=== PATIENT | female | born 1995 | race Caucasian/White ===

== ENCOUNTER 2023-09-09 18:17 | Emergency (ER) | payer OTHER ==
[2023-09-09 18:49] LABS: BASOPHILS % (AUTO) 0.2 %; EOSINOPHILS # (AUTO) 0.1 10^3/uL (0.0-0.7); HCT - HEMATOCRIT 39.3 % (37.0-47.0); HGB - HEMOGLOBIN 12.9 g/dL (12.0-16.0); LYMPHOCYTES # (AUTO) 1.7 10^3/uL (1.5-3.5); LYMPHOCYTES % (AUTO) 34.3 %; MEAN CORPUSCULAR HEMOGLOBIN 28.9 pg (27.0-31.0); MEAN CORPUSCULAR HGB CONC 32.8 g/dL (32.0-36.0); MEAN CORPUSCULAR VOLUME 88.1 fL (81.0-99.0); MEAN PLATELET VOLUME 10.4 fL (7.9-10.8); MONOCYTES # (AUTO) 0.4 10^3/uL (0.0-1.0); MONOCYTES % (AUTO) 7.1 %; NEUTROPHILS # (AUTO) 2.8 10^3/uL (1.5-6.6); PLT - PLATELET COUNT 204 10^3/uL (130-450); RED BLOOD COUNT 4.46 10^6/uL (4.20-5.40); RED CELL DISTRIBUTION WIDTH 12.7 % (12.0-15.0)
[2023-09-09 19:05] LABS: ALBUMIN 4.4 g/dL (3.2-5.5); ALBUMIN/GLOBULIN RATIO 1.9 (1.0-2.2); BILIRUBIN,TOTAL 0.5 mg/dL (0.2-1.0); CALCIUM 9.6 mg/dL (8.5-10.3); CREATININE 0.9 mg/dL (0.6-1.3); POTASSIUM 3.9 mmol/L (3.5-4.5); TOTAL PROTEIN 6.7 g/dL (6.4-8.9)
[2023-09-09] MEDS ORDERED: SODIUM CHLORIDE 0.9% 1,000 ML IV STA (19:25)
[2023-09-09] MEDS ORDERED: MORPHINE 2 MG/ML CARPUJECT IVP STA (19:25)
[2023-09-09] MEDS ORDERED: ONDANSETRON 4 MG/2 ML VIAL IVP STA (19:25)
[2023-09-09 19:49] LABS: BILIRUBIN,URINE NEGATIVE (NEGATIVE); GLUCOSE, URINE (UA) NEGATIVE (NEGATIVE); KETONES,URINE (UA) TRACE mg/dL (NEGATIVE); LEUKOCYTE ESTERASE, URINE NEGATIVE (NEGATIVE); NITRITE,URINE NEGATIVE (NEGATIVE); OCCULT BLOOD,URINE NEGATIVE (NEGATIVE); PH,URINE 6.5 PH (5.0-7.5); PROTEIN,URINE NEGATIVE (NEGATIVE); UROBILINOGEN,URINE 1 (NORMAL) E.U./dL (NORMAL)
[2023-09-09 19:53] LABS: CLARITY,URINE CLEAR (CLEAR)
[2023-09-09 20:20] LABS: HCG UR QUAL NEGATIVE
[2023-09-09] MEDS ORDERED: iohexoL-300 100 ML VIAL IVP ONE (20:45)
--- NOTE | 2023-09-09 21:11 | CT Report ---
PROCEDURE: ABDOMEN/PELVIS W INDICATIONS: diffuse abd pain CONTRAST: 100mL Omni 300 TECHNIQUE: After the administration of IV contrast, 5 mm thick sections acquired from the diaphragms to the symp hysis. 5 mm thick coronal and sagittal reformats were acquired. For radiation dose reduction, the f ollowing was used: automated exposure control, adjustment of mA and/or kV according to patient size. COMPARISON: None FINDINGS: Image quality: Good Lower chest: Lung bases appear unremarkable. Heart size is normal. Solid organs: Hypervascular lesion at the liver dome is indeterminate on this single phase study, but most commonly a flash filling hemangioma. Gallbladder is unremarkable. No pathologic dilation of the biliary system or pancreatic duct. Splenom egaly measures about 16 cm in craniocaudal dimension. No adrenal nodules. No suspicious renal lesions or hydronephrosis. Vessels and lymph nodes: The main portal vein appears patent. No abdominal aortic aneurysm. No pathol ogic lymph nodes by size criteria. Bowel and peritoneum: Mild nonspecific wall thickening versus artifact of under distention of the dis linda stomach. There is no small bowel obstruction. Appendix appears nondilated. Small amount pelvic fr ee fluid is present. Body wall: Tiny fat-containing umbilical hernia. Pelvis: Suspected small subserosal fibroid near the fundus. An IUD is in place. Unremarkable appearan ce of the adnexal structures for age on limited CT evaluation. Bladder is unremarkable. Bones: No acute or suspicious finding. IMPRESSION: Splenomegaly measures 16 cm in craniocaudal dimension. Incidental hypervascular lesion at the liver dome, indeterminate on single phase CT. Assuming patient does not have a known malignancy history, this is most commonly hemangioma. Mild nonspecific wall thickening representing gastritis versus artifact of under distention in the di stal stomach. Pelvic organs could be better evaluated on ultrasound if there is concern. An IUD is seen. No acute findings otherwise. Reviewed by: Jovanny Bustillo MD on 09/09/2023 9:10 PM PST Approved by: Jovanny Bustillo MD on 09/09/2023 9:10 PM PST Station ID: [id number]
[2023-09-09] MEDS ORDERED: KETOROLAC 30 MG/ML VIAL IVP STA (21:16)
--- NOTE | 2023-09-09 21:35 | ED Physician Documentation ---
History of Present Illness - Stated complaint Stated Complaint: ABD PX - Chief complaint Chief Complaint: Abd Pain - History obtained from History obtained from: Patient - History of Present Illness Timing: Yesterday Pain level max: 7 Pain level now: 7 - Additonal information Additional information: 27-year-old female presents to the emergency department stating she has had nausea and diarrhea for the past 36 hours. Has diffuse abdominal pain, sometimes on the right, sometimes on the left, sometimes upper, sometimes lower. No fevers. No chills. Has an IUD in place. Denies any possibility of . No changes in sexual partners. No vaginal bleeding or discharge. No recent travel. No recent antibiotics. No blood in the stool. Has not had similar symptoms previously. Does not believe she has been around anyone that has been sick. Review of Systems Constitutional: denies: Fever, Chills GI: reports: Nausea (Nausea but no vomiting), Diarrhea (Patient states she was constipated yesterday, has had diarrhea x 2 today. Nonbloody). 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 - Present Medications Home Medications: Ambulatory Orders Medication Instructions Recorded Confirmed HYDROcod/ACETAM 5/325 [Haines 5/325] 1 - 2 ea PO Q6H PRN #14 tablet 09/09/23 Ondansetron Odt [Zofran] 4 mg TL Q6H PRN #10 tablet 09/09/23 - Allergies Allergies/Adverse Reactions: Allergies Allergy/AdvReac Type Severity Reaction Status Date / Time amoxicillin AdvReac Rash Verified 09/09/23 18:30 - Social History Does the pt smoke?: No Smoking Status: Never smoker PD ED PE NORMAL - Vitals Vital signs reviewed: Yes - General General: Alert and oriented X 3, No acute distress - HEENT HEENT: PERRL, Moist mucous membranes - Neck Neck: Supple, no meningeal sign - Cardiac Cardiac: RRR, Strong equal pulses - Respiratory Respiratory: No respiratory distress, Clear bilaterally - Abdomen Abdomen: Soft, Non distended, Other (Mild diffuse tenderness to palpation. No peritoneal signs.) - Female Female : Pt declined - Rectal Rectal: Pt declined - Back Back: No CVA TTP, No spinal TTP - Derm Derm: Warm and dry - Extremities Extremities: No edema, No calf tenderness / cord - Neuro Neuro: Alert and oriented X 3 - Psych Psych: Normal mood, Normal affect Results - Vitals Vitals: Vital Signs - 24 hr 09/09/23 09/09/23 09/09/23 18:27 19:47 21:41 Temperature 36.8 C 36.8 C 36.8 C Heart Rate 73 65 82 Respiratory 18 17 17 Rate Blood Pressure 120/73 114/80 100/53 L O2 Saturation 100 100 98 09/09/23 22:08 Temperature Heart Rate Respiratory 16 Rate Blood Pressure O2 Saturation Oxygen O2 Source Room air - Labs Labs: Laboratory Tests 09/09/23 09/09/23 09/09/23 18:46 18:46 19:35 WBC 5.0 RBC 4.46 Hgb 12.9 Hct 39.3 MCV 88.1 MCH 28.9 MCHC 32.8 RDW 12.7 Plt Count 204 MPV 10.4 Neut # (Auto) 2.8 Lymph # (Auto) 1.7 [place] # (Auto) 0.4 Eos # (Auto) 0.1 Baso # (Auto) 0.0 Absolute Nucleated RBC 0.00 Nucleated RBC % 0.0 Sodium 139 Potassium 3.9 Chloride 105 Carbon Dioxide 29 Anion Gap 5.0 L BUN 11 Creatinine 0.9 Estimated GFR (MDRD) 76 L Glucose 110 H Calcium 9.6 Total Bilirubin 0.5 AST 12 ALT 10 Alkaline Phosphatase 39 L Total Protein 6.7 Albumin 4.4 Globulin 2.3 Albumin/Globulin Ratio 1.9 Lipase 36 Urine Color YELLOW Urine Clarity CLEAR Urine pH 6.5 Ur Specific [place] 1.020 Urine Protein NEGATIVE Urine Glucose (UA) NEGATIVE Urine Ketones TRACE Urine Occult Blood NEGATIVE Urine Nitrite NEGATIVE Urine Bilirubin NEGATIVE Urine Urobilinogen 1 (NORMAL) Ur Leukocyte Esterase NEGATIVE Ur Microscopic Review NOT INDICATED Urine Culture Comments NOT INDICATED Urine HCG, Qual 09/09/23 19:35 WBC RBC Hgb Hct MCV MCH MCHC RDW Plt Count MPV Neut # (Auto) Lymph # (Auto) [place] # (Auto) Eos # (Auto) Baso # (Auto) Absolute Nucleated RBC Nucleated RBC % Sodium Potassium Chloride Carbon Dioxide Anion Gap BUN Creatinine Estimated GFR (MDRD) Glucose Calcium Total Bilirubin AST ALT Alkaline Phosphatase Total Protein Albumin Globulin Albumin/Globulin Ratio Lipase Urine Color Urine Clarity Urine pH Ur Specific [place] Urine Protein Urine Glucose (UA) Urine Ketones Urine Occult Blood Urine Nitrite Urine Bilirubin Urine Urobilinogen Ur Leukocyte Esterase Ur Microscopic Review Urine Culture Comments Urine HCG, Qual NEGATIVE - Rads (name of study) CT abdomen pelvis Relevant Findings:: Final report received, See rad report PD Medical Decision Making - ED course Complexity details: reviewed results, re-evaluated patient, considered differential, d/w patient ED course: Patient is a 27-year-old female who presents to the emergency department with abdominal pain since yesterday has had nausea and diarrhea. Possible viral illness? No acute findings on CT scan. Pain well-controlled. Tolerating p.o. without difficulty. Given IV morphine for pain and IV Zofran. Also given IV fluids. Will prescribe pain medication for home and have her follow-up with her PCP. No evidence of ovarian cyst, ovarian torsion. No evidence of PID. Patient is well-appearing, nontoxic. No diarrhea here. Patient counseled regarding signs and symptoms for which I believe and urgent re-evaluation would be necessary. Patient with good understanding of and agreement to plan and is comfortable going home at this time This document was made in part using voice recognition software. While efforts are made to proofread this document, sound alike and grammatical errors may occur. Departure - Departure Disposition: 01 Home, Self Care Clinical Impression: Abdominal pain Qualifiers: Abdominal location: generalized Qualified Code(s): R10.84 - Generalized abdominal pain Condition: Good Instructions: ED Abdominal Pain Female Non-Specific Abdominal Pain Follow-Up: your,doctor in 1week [Other] Prescriptions: HYDROcod/ACETAM 5/325 [Haines 5/325] 1 - 2 ea PO Q6H PRN #14 tablet PRN Reason: Pain Ondansetron Odt [Zofran] 4 mg TL Q6H PRN #10 tablet PRN Reason: Nausea / Vomiting Comments: Your prescriptions were sent to the [facility]. The cause of your symptoms is unclear today. Your laboratory testing does not show any significant abnormalities. Your urinalysis does not show any evidence of infection. Your CT scan does not show any acute abnormalities, you do have an enlarged spleen as well as a hypervascular lesion in your liver dome, likely a hemangioma. There is some mild wall thickening of your stomach, but this may just be because you have not eaten recently. Your IUD is in place. Please follow-up with your doctor for further care. Please return if you worsen. I am prescribing a short course of narcotic pain medication for you. These are potentially dangerous and addictive medications that should be used carefully. These medications may constipate you. Take an zeyf-fzv-ynbpqwd stool softener (docusate) twice daily with plenty of water while taking these medications. If you go 24 hours without a bowel movement, take [id number] miralax, per package instructions. Do not drink or drive while taking these medications. If you received narcotic or sedating medications while in the emergency department, do not drive for 24 hours. Store this medication in a safe, secure place and out of reach of children. It is a violation of federal law to give or sell this medication to another person or to use in a manner other than prescribed. The ED will not refill narcotic prescriptions, including prescriptions lost or stolen. To dispose of unwanted medications: 1. [facility] [address] in [place] has a medication drop box. They accept prescription medications (in pill form) Thursday through Thursday 9:00 a.m. to 5:00 p.m. 2. The [facility] [employer] accepts prescription medications (in pill form only) for disposal year round. Call for more information. 3. Contact the [facility] for the next [facility] sponsored prescription drug collection event. , [phone], or [phone]; Forms: PCP List Discharge Date/Time: 09/09/23 22:09
[2023-09-09 21:43] VITALS: BP 100/53; O2SAT 98
[2023-09-09] MEDS ORDERED: ONDANSETRON ODT 4 MG Prepack 2 TL PRN (21:49)
== END 2023-09-09 22:09 | disposition home or self-care (01) ==
LOC: ED 18:17
DX: R10.84 Generalized abdominal pain (principal)
CPT/HCPCS: 36415; 74177; 80053; 81003; 81025; 83690; 85025; 96374; 96375; 99283; 99284; Q9967; 81001; 87086

== ENCOUNTER 2024-06-14 18:34 | Emergency (ER) | payer OTHER ==
[2024-06-14 19:10] LABS: BASOPHILS % (AUTO) 0.5 %; EOSINOPHILS # (AUTO) 0.1 10^3/uL (0.0-0.7); EOSINOPHILS % (AUTO) 2.3 %; HCT - HEMATOCRIT 38.9 % (37.0-47.0); HGB - HEMOGLOBIN 13.1 g/dL (12.0-16.0); LYMPHOCYTES # (AUTO) 2.1 10^3/uL (1.5-3.5); LYMPHOCYTES % (AUTO) 47.4 %; MEAN CORPUSCULAR HEMOGLOBIN 29.3 pg (27.0-31.0); MEAN CORPUSCULAR HGB CONC 33.7 g/dL (32.0-36.0); MEAN PLATELET VOLUME 10.6 fL (7.9-10.8); MONOCYTES # (AUTO) 0.3 10^3/uL (0.0-1.0); MONOCYTES % (AUTO) 7.6 %; NEUTROPHILS # (AUTO) 1.8 10^3/uL (1.5-6.6); PLT - PLATELET COUNT 165 10^3/uL (130-450); RED BLOOD COUNT 4.47 10^6/uL (4.20-5.40); RED CELL DISTRIBUTION WIDTH 12.6 % (12.0-15.0); WHITE BLOOD COUNT 4.4 x10^3/uL (4.8-10.8)
[2024-06-14 19:11] LABS: BILIRUBIN,URINE NEGATIVE (NEGATIVE); GLUCOSE, URINE (UA) NEGATIVE (NEGATIVE); KETONES,URINE (UA) NEGATIVE (NEGATIVE); LEUKOCYTE ESTERASE, URINE NEGATIVE (NEGATIVE); NITRITE,URINE NEGATIVE (NEGATIVE); OCCULT BLOOD,URINE NEGATIVE (NEGATIVE); PROTEIN,URINE NEGATIVE (NEGATIVE); UROBILINOGEN,URINE 0.2 (NORMAL) E.U./dL (NORMAL)
[2024-06-14 19:16] LABS: CLARITY,URINE CLEAR (CLEAR); HCG UR QUAL NEGATIVE
[2024-06-14 19:24] LABS: ALBUMIN 4.4 g/dL (3.2-5.5); ALBUMIN/GLOBULIN RATIO 1.6 (1.0-2.2); BILIRUBIN,TOTAL 0.4 mg/dL (0.2-1.0); CALCIUM 9.8 mg/dL (8.5-10.3); CREATININE 0.9 mg/dL (0.6-1.3); POTASSIUM 3.9 mmol/L (3.5-4.5); TOTAL PROTEIN 7.1 g/dL (6.4-8.9)
[2024-06-14 21:34] VITALS: O2SAT 98
[2024-06-14] MEDS ORDERED: iohexoL-300 100 ML VIAL ONE (21:48)
--- NOTE | 2024-06-14 21:49 | ED Physician Documentation ---
History of Present Illness - Stated complaint Stated Complaint: L SIDE PX - Chief complaint Chief Complaint: Abd Pain - History obtained from History obtained from: Patient - History of Present Illness Timing: Other (1 year) Pain level max: 5 Pain level now: 4 - Additonal information Additional information: Patient is a 28-year-old female who presents to the emergency department left upper quadrant abdominal pain. She states this been ongoing for about the past year. She states today the pain was worsening. She states that she also felt like she was having a hard time catching her breath and her hands were tingling and pale. She states the pain has decreased now. She states she has been told she has had an enlarged spleen in the past. No nausea, vomiting, diarrhea, constipation. No urinary symptoms. No trauma. No fall. No fevers. No chills. Denies any possibility of . No recent travel. No recent antibiotics. She states that the pain is decreasing now. Review of Systems Constitutional: denies: Fever, Chills, Myalgias GI: denies: Vomiting, Diarrhea, Hematemesis, Bloody / black stool : denies: Dysuria, Frequency, Hesitancy, Now EGA Skin: denies: Rash Musculoskeletal: denies: Neck pain, Back pain Neurologic: denies: Headache PD PAST MEDICAL HISTORY - Past Medical History Past Medical History: Yes Cardiovascular: None Respiratory: None Neuro: Headaches Endocrine/Autoimmune: None GI: None CATALOGING ASSISTANT: Fibroids : Kidney stones HEENT: None Psych: Depression, Anxiety, ADD/ADHD Musculoskeletal: Chronic back pain Derm: None - Past Surgical History 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 - Present Medications Home Medications: Ambulatory Orders Medication Instructions Recorded Confirmed Dextroamphetamine/Amphetamine 15 mg PO DAILY PRN 06/14/24 06/14/24 [Adderall 15 mg Tablet] HYDROcod/ACETAM 5/325 [[place] 5/325] 1 - 2 ea PO Q6H PRN #10 tablet 06/14/24 - Allergies Allergies/Adverse Reactions: Allergies Allergy/AdvReac Type Severity Reaction Status Date / Time amoxicillin AdvReac Rash Verified 06/14/24 18:40 - Social History Does the pt smoke?: No Smoking Status: Never smoker Does the pt drink ETOH?: Yes Does the pt have substance abuse?: No - Immunizations Immunizations are current?: Yes - POLST Patient has POLST: No PD ED PE NORMAL - Vitals Vital signs reviewed: Yes - General General: Alert and oriented X 3, No acute distress - HEENT HEENT: PERRL, Moist mucous membranes - Neck Neck: Supple, no meningeal sign - Cardiac Cardiac: RRR, Strong equal pulses - Respiratory Respiratory: No respiratory distress, Clear bilaterally - Abdomen Abdomen: Normal bowel sounds, Soft, Non distended, Other (Mild tenderness to palpation left upper quadrant and epigastric without peritoneal signs) - Back Back: No CVA TTP, No spinal TTP - Derm Derm: Warm and dry - Extremities Extremities: No edema, No calf tenderness / cord - Neuro Neuro: Alert and oriented X 3 - Psych Psych: Normal mood, Normal affect Results - Vitals Vitals: Vital Signs - 24 hr 06/14/24 06/14/24 18:41 21:32 Temperature 37 C Heart Rate 79 74 Respiratory 18 16 Rate Blood Pressure 123/79 120/63 O2 Saturation 100 98 Oxygen O2 Source Room air - Labs Labs: Laboratory Tests 06/14/24 06/14/24 06/14/24 19:05 19:05 19:06 WBC 4.4 L RBC 4.47 Hgb 13.1 Hct 38.9 MCV 87.0 MCH 29.3 MCHC 33.7 RDW 12.6 Plt Count 165 MPV 10.6 Neut # (Auto) 1.8 Lymph # (Auto) 2.1 [place] # (Auto) 0.3 Eos # (Auto) 0.1 Baso # (Auto) 0.0 Absolute Nucleated RBC 0.00 Nucleated RBC % 0.0 Sodium 140 Potassium 3.9 Chloride 105 Carbon Dioxide 30 Anion Gap 5.0 L BUN 15 Creatinine 0.9 Estimated GFR (MDRD) 75 L Glucose 85 Calcium 9.8 Total Bilirubin 0.4 AST 11 ALT 10 Alkaline Phosphatase 36 L Total Protein 7.1 Albumin 4.4 Globulin 2.7 Albumin/Globulin Ratio 1.6 Lipase 23 Urine Color YELLOW Urine Clarity CLEAR Urine pH 6.0 Ur Specific [place] 1.010 Urine Protein NEGATIVE Urine Glucose (UA) NEGATIVE Urine Ketones NEGATIVE Urine Occult Blood NEGATIVE Urine Nitrite NEGATIVE Urine Bilirubin NEGATIVE Urine Urobilinogen 0.2 (NORMAL) Ur Leukocyte Esterase NEGATIVE Ur Microscopic Review NOT INDICATED Urine Culture Comments NOT INDICATED Urine HCG, Qual NEGATIVE - Rads (name of study) CT abdomen pelvis Relevant Findings:: Final report received, See rad report PD Medical Decision Making - ED course Complexity details: reviewed results, re-evaluated patient, considered differential, d/w patient ED course: 28-year-old female with left upper quadrant abdominal pain x 1 year. Worsened today, was having shortness of breath and what sounds like carpopedal spasms, this has resolved. No evidence of PE. No calf tenderness or swelling. No history of blood clots. Laboratory study is unremarkable except for a mildly decreased white blood cell count. Her abdomen pelvis CT shows a mild decrease in her spleen size from last year. Recommend that she follow-up with her doctor for further care. We will prescribe pain medication for home. She is awaiting a GI referral from her doctor. Patient is very well-appearing, nontoxic. Afebrile. No hematomas. No evidence of intra-abdominal bleeding. Patient c ounseled regarding signs and symptoms for which I believe and urgent re- evaluation would be necessary. Patient with good understanding of and agreement to plan and is comfortable going home at this time This document was made in part using voice recognition software. While efforts are made to proofread this document, sound alike and grammatical errors may occur. Departure - Departure Disposition: Home, Self Care Clinical Impression: Splenomegaly Abdominal pain Qualifiers: Abdominal location: unspecified location Qualified Code(s): R10.9 - Unspecified abdominal pain Condition: Stable Instructions: ED Abdominal Pain Female Non-Specific Abdominal Pain Follow-Up: GENNY LOWE DO [Primary Care Provider] - Prescriptions: HYDROcod/ACETAM 5/325 [[place] 5/325] 1 - 2 ea PO Q6H PRN #10 tablet PRN Reason: Pain Comments: As we did cast the cause of your symptoms is unclear. Please follow-up with your doctor for further care. Your prescription was sent to the [facility] pharmacy. I have included your CT reading below. Please return if you worsen. I am prescribing a short course of narcotic pain medication for you. These are potentially dangerous and addictive medications that should be used carefully. These medications may constipate you. Take an cfun-jxx-huvshlc stool softener (docusate) twice daily with plenty of water while taking these medications. If you go 24 hours without a bowel movement, take swfr-evu-kygwiqs miralax, per package instructions. Do not drink or drive while taking these medications. If you received narcotic or sedating medications while in the emergency department, do not drive for 24 hours. Store this medication in a safe, secure place and out of reach of children. It is a violation of federal law to give or sell this medication to another person or to use in a manner other than prescribed. The ED will not refill narcotic prescriptions, including prescriptions lost or stolen. To dispose of unwanted medications: 1. [facility] at [address] in [place] has a medication drop box. They accept prescription medications (in pill form) Thursday through Thursday 9:00 a.m. to 5:00 p.m. 2. The [facility] accepts prescription medications (in pill form only) for disposal year round. Call for more information. 3. Contact the [facility] for the next [facility] sponsored prescription drug collection event. , [phone], or [phone]; EXAM: [id number] CT/ABPEW ([id number]) PROCEDURE: Abdomen/Pelvis W INDICATIONS: L flank pain, h/o splenomegaly CONTRAST: Omni 300, 100mls TECHNIQUE: After the administration of intravenous contrast, a CT scan of the abdomen and pelvis was performed. Images were recorded and evaluated at appropriate window settings. Reformats: coronal and sagittal. For radiation dose reduction, the following was used: automated exposure control, adjustment of mA and/or kV according to patient size. COMPARISON: CT abdomen and pelvis 09/09/2023. FINDINGS: Image quality: Diagnostic. Lower chest: Unremarkable. Liver: Enhancing focus at the dome of the liver measuring 1.5 cm cortical (11/17), unchanged. Hypodense focus in the right lower liver is unchanged. Most likely a cyst or hemangioma. Gallbladder: No calcified gallstones. Biliary tree: No intrahepatic or extrahepatic dilation, accounting for age. Spleen: Mild splenomegaly. Measures 14.8 cm in length, (), previously 16 cm. The splenic vein is prominent. Pancreas: No pancreatic ductal dilation. Adrenals: No adrenal nodule. Kidneys and ureters: No hydronephrosis. No renal cystic lesion which requires follow up. No solid mass. Stomach, bowel and peritoneum: No gastric or small bowel dilation. No abnormal wall thickening. No pathologic free fluid. Normal appendix. Lymph nodes: No central or retroperitoneal adenopathy. Vessels: No infrarenal aortic aneurysm. Patent portal vein. PELVIS Reproductive organs: Anteverted uterus. IUD centered in the uterus. Probable anterior intramural fibroid. Scant free fluid in the pelvis. Bladder: No abnormal wall thickening, accounting for underdistention. Pelvic lymph nodes: No pelvic adenopathy by size criteria. Bones: No aggressive osseous abnormality. Other: No significant ventral or inguinal hernia. IMPRESSION: 1. Mild splenomegaly. Slightly decreased. 2. No bowel obstruction. No hydronephrosis. 3. Enhancing focus at the dome of the liver is unchanged. Most likely a benign hemangioma. Forms: PCP List
[2024-06-14] MEDS: iohexoL-300 100 ML VIAL IVP ONE (21:57)
--- NOTE | 2024-06-14 22:50 | CT Report ---
PROCEDURE: Abdomen/Pelvis W INDICATIONS: L flank pain, h/o splenomegaly CONTRAST: Omni 300, 100mls TECHNIQUE: After the administration of intravenous contrast, a CT scan of the abdomen and pelvis was performed. Images were recorded and evaluated at appropriate window settings. Reformats: coronal and sagittal. F or radiation dose reduction, the following was used: automated exposure control, adjustment of mA and /or kV according to patient size. COMPARISON: CT abdomen and pelvis 09/09/2023. FINDINGS: Image quality: Diagnostic. Lower chest: Unremarkable. Liver: Enhancing focus at the dome of the liver measuring 1.5 cm cortical (11/17), unchanged. Hypodens e focus in the right lower liver is unchanged. Most likely a cyst or hemangioma. Gallbladder: No calcified gallstones. Biliary tree: No intrahepatic or extrahepatic dilation, accounting for age. Spleen: Mild splenomegaly. Measures 14.8 cm in length, (), previously 16 cm. The splenic vein is prominent. Pancreas: No pancreatic ductal dilation. Adrenals: No adrenal nodule. Kidneys and ureters: No hydronephrosis. No renal cystic lesion which requires follow up. No solid mas s. Stomach, bowel and peritoneum: No gastric or small bowel dilation. No abnormal wall thickening. No pa thologic free fluid. Normal appendix. Lymph nodes: No central or retroperitoneal adenopathy. Vessels: No infrarenal aortic aneurysm. Patent portal vein. PELVIS Reproductive organs: Anteverted uterus. IUD centered in the uterus. Probable anterior intramural fibr oid. Scant free fluid in the pelvis. Bladder: No abnormal wall thickening, accounting for underdistention. Pelvic lymph nodes: No pelvic adenopathy by size criteria. Bones: No aggressive osseous abnormality. Other: No significant ventral or inguinal hernia. IMPRESSION: 1. Mild splenomegaly. Slightly decreased. 2. No bowel obstruction. No hydronephrosis. 3. Enhancing focus at the dome of the liver is unchanged. Most likely a benign hemangioma. Reviewed by: Reilly Farmer MD on 06/14/2024 10:49 PM PDT Approved by: Reilly Farmer MD on 06/14/2024 10:49 PM PDT Station ID: [id number]
[2024-06-14] MEDS: HYDROcod/ACETAM 5/325 MG TABLET PO STA (23:34)
[2024-06-14 23:40] VITALS: BP 133/67
== END 2024-06-14 23:38 | disposition home or self-care (01) ==
LOC: ED 18:34
DX: R10.12 Left upper quadrant pain (principal); R16.1 Splenomegaly, not elsewhere classified
CPT/HCPCS: 36415; 74177; 80053; 81003; 81025; 83690; 85025; 99284; A9270; Q9967; 81001; 87086